=== PATIENT | male | born 2000 | race Asian ===

== ENCOUNTER 2023-12-03 12:35 | Emergency (ER) | payer MEDICAID ==
[~2023-12-03] VITALS: Ht 175.3 cm; Wt 84.0 kg
[2023-12-03 12:39] VITALS: O2SAT 99
[2023-12-03] MEDS: KETOROLAC 30MG/ML VIAL IM ONE (13:12)
[2023-12-03] MEDS: CYCLOBENZAPRINE 10MG TABLET PO ONE (13:12)
[2023-12-03] MEDS ORDERED: CYCL10TA21 MT (13:33)
[2023-12-03] MEDS ORDERED: NAPR-1176 MT (13:33)
[2023-12-03 14:25] VITALS: BP 125/85; PULSE 68; RESP 13; TEMP 98.6
== END 2023-12-03 15:03 | disposition home or self-care (01) ==
LOC: ER 12:35
DX: S80.02XA Contusion of left knee, initial encounter (principal); X58.XXXA Exposure to other specified factors, initial encounter; Y93.89 Activity, other specified; Y92.89 Other specified places as the place of occurrence of the external cause; Y99.8 Other external cause status
CPT/HCPCS: 73562; 73700; 29505; 96372; 99285; J1885; Z7610 ×2